=== PATIENT | female | born 1940 | race Caucasian/White ===

== ENCOUNTER 2019-01-08 06:28 | Inpatient (IN) | payer MEDICARE, OTHER ==
[2019-01-08] MEDS ORDERED: BUPIVACAINE 0.5% (SDV) 30 ML, morphine SULFATE (PF) 8 MG, EPINEPHrine 0.3 MG, KETOROLAC... IRR (06:30)
[2019-01-08] MEDS: TRANEXAMIC ACID 1GM/100ML(PMX) 100 ML IVPB ×2 (06:30→13:59)
[2019-01-08] MEDS: GABAPENTIN 300 MG CAP PO ×2 (08:40→21:05)
[2019-01-08] MEDS: LACTATED RINGER'S 1,000 ML IV (08:41)
[2019-01-08] MEDS: DEXAMETHASONE 1 MG TAB PO (08:41)
[2019-01-08] MEDS ORDERED: CEFAZOLIN 1 GM INJ (09:00)
[2019-01-08] MEDS ORDERED: SEVOFLURANE 15 MIN (09:00)
[2019-01-08] MEDS ORDERED: ROPIVACAINE 0.5 % 30 ML VIAL (09:00)
[2019-01-08] MEDS ORDERED: ROCURONIUM 50 MG INJ (09:00)
[2019-01-08] MEDS ORDERED: FENTAnyl 50 MCG/ML VIAL (09:00)
[2019-01-08] MEDS ORDERED: MIDAZOLAM 1 MG/ML 2 ML INJ (09:00)
[2019-01-08] MEDS ORDERED: PROPOFOL 20 ML (09:00)
[2019-01-08] MEDS: VANCOMYCIN 1 GM (PMX) 250 ML IVPB (09:56)
[2019-01-08] MEDS: POLYMYXIN/BACITRACIN 1L IRRIG (11:28)
[2019-01-08] MEDS ORDERED: CA CHLORIDE 10% 10 ML SYRINGE (11:28)
[2019-01-08] MEDS ORDERED: THROMBIN 5000 UNIT VIAL (11:28)
[2019-01-08] MEDS ORDERED: BUPIVACAINE 0.5%/EPI (SDV) 30 ML INJ (11:28)
[2019-01-08] MEDS ORDERED: METOCLOPRAMIDE 10 MG INJ (12:17)
[2019-01-08] MEDS ORDERED: KETOROLAC 30 MG INJ (12:17)
[2019-01-08] MEDS ORDERED: DEXAMETHASONE 4 MG/ML 5 ML INJ (12:17)
[2019-01-08] MEDS ORDERED: ONDANSETRON 4 MG INJ (12:17)
[2019-01-08] MEDS ORDERED: TRANEXAMIC ACID 1GM/100ML(PMX) 100 ML (12:25)
[2019-01-08] MEDS ORDERED: hydrALAzine 20 MG INJ IV (12:30)
[2019-01-08] MEDS ORDERED: DIPHENHYDRAMINE 50 MG INJ IV ×2 (12:30→13:30)
[2019-01-08] MEDS ORDERED: LABETALOL HCL 20MG INJ IV (12:30)
[2019-01-08] MEDS ORDERED: FENTAnyl 50 MCG/ML VIAL IV ×3 (12:30)
[2019-01-08] MEDS ORDERED: METOCLOPRAMIDE 10 MG INJ IV (12:30)
[2019-01-08] MEDS ORDERED: MEPERIDINE 25 MG INJ IV (12:30)
[2019-01-08] MEDS ORDERED: ONDANSETRON 4 MG INJ IV ×2 (12:30→13:30)
[2019-01-08] MEDS ORDERED: EPHEDrine 25 MG/5 ML SYG IV (12:30)
[2019-01-08] MEDS ORDERED: HYDROmorphONE 1 MG/5 ML IV SYRINGE IV ×2 (12:30)
[2019-01-08] MEDS ORDERED: OXYCODONE/ACETAMINOPHEN (5/325) TAB PO (12:30)
[2019-01-08] MEDS ORDERED: SUGAMMADEX SODIUM 200 MG/2 ML VIAL IV (12:50)
[2019-01-08] MEDS: HYDROmorphONE 1 MG/5 ML IV SYRINGE IV ×4 (13:29→13:57)
[2019-01-08] MEDS ORDERED: LOPERAMIDE 2 MG CAP PO (13:30)
[2019-01-08] MEDS ORDERED: HYDROmorphONE 1 MG/ML SYG IV (13:30)
[2019-01-08] MEDS: VANCOMYCIN 500 MG (PMX) 100 ML IVPB (13:30)
[2019-01-08] MEDS ORDERED: MAGNESIUM HYDROXIDE 30ML CUP PO (13:30)
[2019-01-08] MEDS ORDERED: NACL 0.9% 3 ML SYG IV (13:30)
[2019-01-08] MEDS ORDERED: oxyCODONE 5 MG TAB PO ×2 (13:30)
[2019-01-08] MEDS: KETOROLAC 15 MG INJ IV ×2 (15:11→21:06)
[2019-01-08] MEDS: DEXAMETHASONE 2 MG TAB PO (17:20)
[2019-01-08] MEDS: ACETAMINOPHEN 500 MG TAB PO (17:20)
[2019-01-08] MEDS: SENNA/DOCUSATE NA (8.6MG/50MG) TAB PO (21:05)
[2019-01-09] MEDS: ZOLPIDEM 5 MG TAB PO (01:19)
[2019-01-09] MEDS: DEXAMETHASONE 2 MG TAB PO ×3 (01:20→11:48)
[2019-01-09] MEDS: ACETAMINOPHEN 500 MG TAB PO ×3 (01:20→12:18)
[2019-01-09] MEDS: VANCOMYCIN 500 MG (PMX) 100 ML IVPB (01:22)
[2019-01-09] MEDS ORDERED: CEPASTAT LOZENGE MT (04:00)
[2019-01-09] MEDS: KETOROLAC 15 MG INJ IV (07:16)
[2019-01-09] MEDS: SENNA/DOCUSATE NA (8.6MG/50MG) TAB PO (08:46)
[2019-01-09] MEDS: oxyCODONE 5 MG TAB PO (12:17)
== END 2019-01-09 12:45 | disposition home or self-care (01) | DRG 483 ==
LOC: SDS 06:28 → REC 13:14 → MS1 14:06
PROC: 0RRJ00Z Replacement of Right Shoulder Joint with Reverse Ball and Socket Synthetic Substitute, Open Approach (ICD-10-PCS; principal; 2019-01-08 11:30)
PROC: 0PB90ZZ Excision of Right Clavicle, Open Approach (ICD-10-PCS; 2019-01-08 11:30)
DX: M19.011 Primary osteoarthritis, right shoulder (principal); M75.101 Unspecified rotator cuff tear or rupture of right shoulder, not specified as traumatic
CPT/HCPCS: 73030-RT; 86999; 88304; 88311; 97161; 97530